=== PATIENT | female | born 1945 | race Two or more races ===

== ENCOUNTER 2024-01-07 09:11 | Outpatient (CLI) | payer OTHER | END 2024-01-07 09:18 | disposition home or self-care (01) | LOC: TOM 09:11 | PROVIDERS: ATTEND Internal Medicine Hematology & Oncology | DX: D51.1 Vitamin B12 deficiency anemia due to selective vitamin B12 malabsorption with proteinuria (principal); D51.3 Other dietary vitamin B12 deficiency anemia; E55.9 Vitamin D deficiency, unspecified; D70.2 Other drug-induced agranulocytosis; I73.9 Peripheral vascular disease, unspecified; R10.30 Lower abdominal pain, unspecified; I10 Essential (primary) hypertension; E03.9 Hypothyroidism, unspecified; E08.65 Diabetes mellitus due to underlying condition with hyperglycemia; E78.5 Hyperlipidemia, unspecified; N85.01 Benign endometrial hyperplasia; N39.0 Urinary tract infection, site not specified; J41.0 Simple chronic bronchitis; I63.9 Cerebral infarction, unspecified | CPT/HCPCS: 70470; Q9965 ==